=== PATIENT | female | born 1995 | race Caucasian/White ===

== ENCOUNTER 2023-05-29 08:55 | Outpatient (RCR) | payer OTHER, SELFPAY ==
--- NOTE | 2023-05-30 08:47 | HO.PHP ---
PHP staff member received a message from Eloina stating that Nguyen will not be starting program today due to her having COVID. Eloina expressed that she will be reaching out to her to set up a reassessment.
== END 2023-05-29 23:59 | disposition home or self-care (01) ==
LOC: HO.PHPA 08:55
PROVIDERS: Visit Provider Psychiatry & Neurology Psychiatry
DX: F33.1 Major depressive disorder, recurrent, moderate (principal); F43.10 Post-traumatic stress disorder, unspecified; F41.1 Generalized anxiety disorder
CPT/HCPCS: 90791

== ENCOUNTER 2023-07-26 14:59 | Outpatient (REF) | payer OTHER, SELFPAY ==
[2023-07-26 15:17] LABS: MANUAL DIFF FLAG NO
[2023-07-26 15:34] LABS: Basophils Percent Auto 0.2 % (0-2); Eosinophils Absolute Auto 0.1 X10*3/uL (0.0-0.4); Eosinophils Percent Auto 0.5 % (0-4); Hematocrit 40.4 % (37.0-47.0); Hemoglobin 13.2 g/dl (12.0-16.0); Imm Gran Abs Auto 0.03 X10*3/uL (0.00-0.03); Imm Gran Pct Auto 0.3 % (0.0-0.4); Lymphocytes Absolute Auto 3.1 X10*3/uL (1.2-4.9); Lymphocytes Percent Auto 32.1 % (20-40); Mean Corpuscular HGB Conc 32.7 g/dl (31.0-35.0); Mean Corpuscular Hemoglobin 29.1 pg (27.0-33.0); Mean Platelet Volume 9.7 fL (9.4-12.3); Monocytes Absolute Auto 0.5 X10*3/uL (0.1-1.2); Monocytes Percent Auto 4.9 % (2-11); Neutrophils Absolute Auto 6.1 x10*3/uL (2.0-8.3); Platelet Count 363 X10*3/uL (160-400); Red Blood Count 4.54 X10*6/uL (4.20-5.50); Red Cell Distribution Width 13.3 % (11.0-16.0); White Blood Count 9.8 X10*3/uL (4.8-10.8)
[2023-07-26 15:56] LABS: Estimated Average Glucose 97 mg/dL
[2023-07-26 16:55] LABS: Alanine Aminotransferase 20 U/L (0-31); Albumin Level 4.6 g/dL (3.5-5.0); Alkaline Phosphatase 111 U/L (39-117); Anion Gap 11 (12-20); Aspartate Amino Transferase 17 U/L (5-31); Bilirubin Total 0.5 mg/dL (0.0-1.0); Blood Urea Nitrogen 6 mg/dL (9-16); Calcium 10.2 mg/dL (8.4-10.2); Carbon Dioxide 27 mmol/L (22-29); Chloride 104 mmol/L (96-108); Cholesterol 170 mg/dL (<200); Estimated Glomerular Filt Rate > 60; Glucose Random 88 mg/dL (60-115); HDL Cholesterol 38 mg/dL (>40); Iron 85 mcg/dL (30-160); LDL Cholesterol Calculated 106 mg/dL (<100); Magnesium 1.9 mg/dL (1.6-2.6); Percent Iron Saturation 23 % (15-50); Potassium 3.9 mmol/L (3.3-5.1); Sodium 138 mmol/L (135-145); Total Iron Binding Capacity 367 mcg/dL (228-428); Total Protein 8.2 g/dL (6.5-8.0); Triglycerides 132 mg/dL (<150); Unsaturated Iron Binding 282 ug/dL
[2023-07-26 17:28] LABS: Ferritin 55 ng/mL (10-122); Free T4 (Free Thyroxine) 0.81 ng/dL (0.71-1.85); HCG Quantitative < 2 mIU/mL; Thyroid Stimulating Hormone 0.87 uIU/mL (0.32-4.0)
[2023-07-26 20:07] LABS: Folate 18.3 ng/mL (> or = 4.0)
[2023-07-27 03:40] LABS: Syphilis Screen Nonreactive (Nonreactive)
[2023-07-27 04:15] LABS: HIV AB/AG Nonreactive (Nonreactive); HIV Num 1 0.05 S/CO (0.00-0.99); ~HepC Num1 0.44 S/CO (0.00-0.79); ~Hepatitis C Antibody Nonreactive (Nonreactive)
[2023-07-27 10:07] LABS: CT PCR NOT DETECTED (Not Detect.); NG PCR NOT DETECTED (Not Detect.)
[2023-07-28 00:42] LABS: Vitamin B12 773 pg/mL (200-900)
== END 2023-07-26 15:00 | disposition home or self-care (01) ==
LOC: HO.LAB 14:59
PROVIDERS: PCP Physician Assistant; Visit Provider Psychiatry & Neurology Psychiatry
DX: Z11.4 Encounter for screening for human immunodeficiency virus [HIV] (principal); F33.1 Major depressive disorder, recurrent, moderate; F41.1 Generalized anxiety disorder; Z20.2 Contact with and (suspected) exposure to infections with a predominantly sexual mode of transmission
CPT/HCPCS: 0353U; 80053; 80061; 82306; 82607; 82728; 82746; 83036; 83540; 83735; 84439; 84443; 84702; 85025; 86780; 86803; 87389

== ENCOUNTER 2023-08-02 09:45 | Outpatient (RCR) | payer OTHER, SELFPAY ==
[2023-07-19 10:42] VITALS: BP 119/91; PULSE 70; TEMP 36.9
[2023-07-19 10:44] VITALS: BMI 33.1
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
--- NOTE | 2023-07-23 16:02 | HO.PHP ---
[facility] admin, Eloina, informed [facility] staff members that Nguyen is out today. Eloina stated she is safe and will be here tomorrow.
--- NOTE | 2023-07-25 15:22 | HO.PHP ---
Client's case has been opened and reviewed in treatment team.
--- NOTE | 2023-07-26 23:29 | HO.PHPPROGNO ---
Subjective Subjective Date of Service: 07/26/23 Reason For Visit: PTSD,depression,anxiety Interim History: Reports being a little tired today . Reports having increased the dose on Buspar and has been at 10 mg BID as of yesterday, denies any adverse effects. She reports cognitive anxiety severity at a 5/10 and somatic anxiety severity at a 7 or 8/10. She has been tolerated the increase last week of Lamictal to 150 mg last week and is doing fine with this. Mood today is okay no extreme swings in mood. Denies irritability, lability or SI. Concetration and focus continue to be problematic. Notes it is even difficult not to get distracted away from the converation by her own thoughts or extrenuous noises/distractions around her. She does not feel Lexapro is effective and has been eager to start tapering off this medication in place of titrating Buspar and addition of guanfacine and Wellbutrin as we had previously discussed. Denies any alcohol or substance use. Denies any hx of AVH or aggressive ideation. As previously noted, no hx of seizures, EDB or Etoh abuse. We discussed r/b/se of bupropion and guanfacine. Medication Compliance: Yes Side effects from medications: No Attending Groups: Yes Review of Systems Acute medical concerns: No Mental Status Exam Mental Status Exam Narrative: Alert, oriented, in no acute distress. Calm, cooperative, engaged. No psychomotor agitation or neurovegetative retardation. Eye contact maintained. Mood anxious, affect variable, mood congruent. Speech normal. Thought process linear, coherent. Thought content related to stressors, denies any helplessness, hopelessness or SI.? No aggressive ideation or HI. No paranoia or delusional content elicited. No evidence of psychosis. Insight and judgment fair but adequate. Diagnostics Vital Signs (24Hr): BMI result Body Mass Index 33.1 Assessment & Plan Assessment & Plan (1) Mood disorder: Status: Acute Code(s): F39 - Unspecified mood [affective] disorder Assessment and Plan: likely MDD, recurrent mod r/o other bipolar spectrum disorder (2) PTSD (post-traumatic stress disorder): Status: Acute Code(s): F43.10 - Post-traumatic stress disorder, unspecified (3) YEHUDA (generalized anxiety disorder): Status: Acute Code(s): F41.1 - Generalized anxiety disorder (4) Other specified eating disorder: Status: Acute Code(s): F50.89 - Other specified eating disorder Assessment and Plan: r/o Binge eating disorder (5) History of ADHD: Status: Acute Code(s): Z86.59 - Personal history of other mental and behavioral disorders (6) Stimulant abuse: Status: Acute Code(s): F15.10 - Other stimulant abuse, uncomplicated Plan continue Lamictal 150 mg continue Buspar 15 mg BID decrease Lexapro to 7.5 mg/d for a week then to 5 mg/d for a week then taper off start Wellbutrin SR 50 mg qAM start guanfacine ER 1 mg qAM continue other medicaitons Patient educated on: diagnosis, medication risk/benefits and substance abuse Informed Consent: understands Reason for contiued partial hosp. stay Substantial Risk for: inability to function, rapid decompensation and med/psych decompensation Certification I certify that partial hospital treatment is medically necessary due to the symptoms and problems resulting from the patient's mental illness and the failure to treat the patient at the partial hospital level of care would likely result in the patient requiring inpatient psychiatric care which could not be prevented at a less intensive level of care. Total time managing care of this patient today ___30_ minutes. Discharge Plan Discharge Attending provider: Niesha Kirk Medications: New lamotrigine 100 mg tablet 150 mg PO DAILY Qty: 45 0RF buspirone 10 mg tablet 10 mg PO TID Qty: 45 0RF bupropion HCl [Wellbutrin SR] 100 mg tablet sustained-release 12 hr 100 mg PO QAM Qty: 20 0RF guanfacine 1 mg tablet extended release 24 hr 1 mg PO DAILY Qty: 20 0RF escitalopram oxalate 5 mg tablet 7.5 mg PO DAILY Qty: 20 0RF Discontinued escitalopram oxalate 10 mg Tablet 10 mg PO DAILY Rx Instructions: Last filled 06/24/23 #30. Print Language: Bhutanese
--- NOTE | 2023-08-02 21:56 | HO.PHPPROGNO ---
Subjective Subjective Date of Service: 08/02/23 Reason For Visit: PTSD,depression,anxiety Interim History: Patient seen for follow-up, anticipating discharge at the end of program today. Doing okay...I have had some PTSD triggers that I dealt with and I think I'm doing good She reports her mood as pretty good , reports anxiety as I'm not really feeling any anxiety today . She reports entering [facility] with goals of learning to deal with life changes. I was feeling a lack of control and had been avoiding stuff and not been dealing with things . She reports her living situation is okay for now, still staying with a friend . Plans to get her own place by September 06, plans to find a room to rent. She reports things are so much better between her and her ex. We are getting along now because we realize our daughter was getting upset with our arguments . She feels they are doing a better job communicating with one another. Sleep is better . Says it is nice to be busy with work. Appetite and energy are stable. ? Reports no acute issues or concerns. Medication compliant, medications well-tolerated. Denies any adverse effects.? Mood is stable.? Denies any hopelessness or SI. Denies thoughts of harming self or others at this time. Denies any aggressive ideation or HI. Denies any paranoia or AH or VH. She reports having a med provider appointment on August 07 and therapy appointment on August 25. Mental Status Exam Mental Status Exam Narrative: Alert, oriented, in no acute distress. Calm, cooperative, engaged. Eye contact maintained. Mood pretty good affect brighter, anxious, mood congruent. Speech normal. Thought process goal-directed. Thought content related to stressors, denies any helplessness, hopelessness or SI.?Future-oriented. No aggressive ideation or HI. No paranoia or delusional content elicited. No evidence of psychosis. Insight and judgment fair to good. Diagnostics Vital Signs (24Hr): BMI result Body Mass Index 33.1 Assessment & Plan Assessment & Plan (1) Mood disorder: Status: Acute Code(s): F39 - Unspecified mood [affective] disorder Assessment and Plan: likely MDD, recurrent mod r/o other bipolar spectrum disorder (2) PTSD (post-traumatic stress disorder): Status: Acute Code(s): F43.10 - Post-traumatic stress disorder, unspecified (3) YEHUDA (generalized anxiety disorder): Status: Acute Code(s): F41.1 - Generalized anxiety disorder (4) Other specified eating disorder: Status: Acute Code(s): F50.89 - Other specified eating disorder Assessment and Plan: r/o Binge eating disorder (5) History of ADHD: Status: Acute Code(s): Z86.59 - Personal history of other mental and behavioral disorders (6) Stimulant abuse: Status: Acute Code(s): F15.10 - Other stimulant abuse, uncomplicated Plan Discharge from [facility] continue regular medications continue Lamictal 150 mg continue Buspar 15 mg BID continue to taper Lexapro to 5 mg/d continue Wellbutrin SR 50/50 BID for remainder of week and then may combine to 100 mg qAM continue guanfacine ER 1 mg qAM and 1 mg daily in afternoon will defer further medication management to outpatient provider Refills sent to pharmacy Patient educated on: diagnosis, medication risk/benefits and substance abuse Informed Consent: understands Reason for contiued partial hosp. stay Substantial Risk for: stable for discharge Certification I certify that partial hospital treatment is medically necessary due to the symptoms and problems resulting from the patient's mental illness and the failure to treat the patient at the partial hospital level of care would likely result in the patient requiring inpatient psychiatric care which could not be prevented at a less intensive level of care. Total time managing care of this patient today __30__ minutes. Discharge Plan Discharge Attending provider: Niesha Kirk Additional Instructions: Nguyen has an Med Provider, Elton, in which her next scheduled appointment is August 08, 2023 at 8:30 AM via telehealth. Nguyen has an OP therapist, Svitlana, in which her next scheduled appointment is August 26, 2023 at 9 AM. Medications: New lamotrigine 100 mg tablet 150 mg PO DAILY Qty: 45 0RF guanfacine 1 mg tablet extended release 24 hr 1 mg PO DAILY Qty: 20 0RF buspirone 15 mg tablet 15 mg PO BID Qty: 30 0RF guanfacine 1 mg tablet extended release 24 hr 1 mg PO QPM Qty: 20 0RF bupropion HCl [Wellbutrin SR] 100 mg tablet sustained-release 12 hr 100 mg PO QAM Qty: 20 0RF Changed escitalopram oxalate 5 mg tablet 5 mg PO DAILY Qty: 20 0RF Discontinued escitalopram oxalate 10 mg Tablet 10 mg PO DAILY Rx Instructions: Last filled 06/24/23 #30. Stand Alone Forms: Patient Portal Discharge page Patient Education: Bupropion (By mouth), Guanfacine (By mouth), Mood Disorders (DC) Print Language: Macedonian
== END 2023-08-02 23:59 | disposition home or self-care (01) ==
LOC: HO.PHPA 09:45
PROVIDERS: Visit Provider Psychiatry & Neurology Psychiatry
DX: F39 Unspecified mood [affective] disorder (principal); F43.10 Post-traumatic stress disorder, unspecified; F41.1 Generalized anxiety disorder; F50.89 Other specified eating disorder; F15.10 Other stimulant abuse, uncomplicated; Z86.59 Personal history of other mental and behavioral disorders; Z79.899 Other long term (current) drug therapy
CPT/HCPCS: 90791; 90853